=== PATIENT | male | born 1985 | race Caucasian/White ===

== ENCOUNTER 2020-10-08 17:06 | Emergency (ER) | payer SELFPAY ==
[~2020-10-08] VITALS: Ht 182.9 cm; Wt 113.6 kg
[~2020-10-08 17:06] MED LIST: LISI-334 PO
--- NOTE | 2020-10-08 18:09 | PHYS DOC ---
Past Medical History Past Medical History: Anxiety, Hypertension Additional Past Medical Histor: abd pain,panic attacks Past Surgical History: Appendectomy, Tonsillectomy Smoking Status: Never Smoker Alcohol Use: None Drug Use: None General Adult EDM: Chief Complaint: ALCOHOL INTOXICATION HPI: HPI: History obtained from patient. Patient is a 34-year-old male past medical history significant for alcohol abuse, hypertension who presents with chief complaint of concern for alcohol withdrawal. He states that he typically drinks 2/5 of vodka daily. He states he last drank 6 hours ago. He states he would like to get assistance and alcohol cessation. States he has been drinking daily for several months to years. He notes mild diffuse abdominal discomfort. Denies any vomiting. States he has been having visual hallucinations. Denies any shaking. Does note some confusion. States he is unsure of how he arrived in the emergency department. Denies suicidal or homicidal ideations. Denies any drug abuse. States that he has been inpatient in the past for alcohol abuse and this was several months ago. Review of Systems: Review of Systems: Constitutional: Denies fever or chills. [] Eyes: Denies change in visual acuity. [] HENT: Denies nasal congestion or sore throat. [] Respiratory: Denies cough or shortness of breath. [] Cardiovascular: Denies chest pain or edema. [] GI: Denies abdominal pain, nausea, vomiting, bloody stools or diarrhea. [] : Denies dysuria. [] Musculoskeletal: Denies back pain or joint pain. [] Integument: Denies rash. [] Neurologic: Positive for visual hallucinations Endocrine: Denies polyuria or polydipsia. [] Lymphatic: Denies swollen glands. [] Psychiatric: Positive for alcohol abuse Heart Score: Risk Factors: Risk Factors: DM, Current or recent (<one month) smoker, HTN, HLP, family history of CAD, obesity. Risk Scores: Score 0 - 3: 2.5% MACE over next 6 weeks - Discharge Home Score 4 - 6: 20.3% MACE over next 6 weeks - Admit for Clinical Observation Score 7 - 10: 72.7% MACE over next 6 weeks - Early Invasive Strategies Current Medications: Current Medications Medications (Trade) Dose Ordered Sig/Salena Start Time Stop Time Status Last Admin Dose Admin Famotidine (Pepcid) 20 mg 1X ONCE 10/08/20 18:15 10/08/20 18:16 Ondansetron HCl (Zofran Odt) 4 mg 1X ONCE 10/08/20 18:15 10/08/20 18:16 Sodium Chloride 1,000 ml @ 1,000 mls/hr 1X ONCE 10/08/20 18:15 10/08/20 19:14 Allergies: Allergies: Allergies Coded Allergies Type Severity Reaction Last Updated Verified No Known Drug Allergies 05/01/15 No Physical Exam: PE: Constitutional: Well developed, well nourished, no acute distress, non-toxic appearance. [] HENT: Normocephalic, atraumatic, bilateral external ears normal, oropharynx moist, no oral exudates, nose normal. [] Eyes: PERRLA, EOMI, conjunctiva normal, no discharge. [] Neck: Normal range of motion, no tenderness, supple, no stridor. [] Cardiovascular:Heart rate regular rhythm, no murmur [] Lungs & Thorax: Bilateral breath sounds clear to auscultation [] Abdomen: soft, no tenderness, no masses, no pulsatile masses. [] Skin: Warm, dry, no erythema, no rash. [] Back: No tenderness, no CVA tenderness. [] Extremities: No tenderness, no cyanosis, no clubbing, ROM intact, no edema. [] Neurologic: Alert with intact cognitive function. No aphasia, dysarthria, or neglect. Slurred speech noted. GCS 15. Pupils 3 mm briskly reactive b/l. No APD present. Cranial nerves 2-12 grossly intact; no facial asymmetry present, tongue midline, shoulder shrugging strength intact. Strength 5/5 and symmetric throughout. Light touch sensation intact throughout. Cerebellar testing appropriate without evidence of dysdiadochokinesia. DTR's 2+ in all 4 extremities. Negative pronator drift bilaterally. Gait unsteady Psychologic: Affect normal, judgement normal, mood normal. [] Current Patient Data: Labs: Laboratory Tests Test 10/08/20 17:15 10/08/20 20:46 White Blood Count 11.0 x10^3/uL Red Blood Count 5.05 x10^6/uL Hemoglobin 15.3 g/dL Hematocrit 45.9 % Mean Corpuscular Volume 91 fL Mean Corpuscular Hemoglobin 30 pg Mean Corpuscular Hemoglobin Concent 33 g/dL Red Cell Distribution Width 14.8 % Platelet Count 286 x10^3/uL Neutrophils (%) (Auto) 69 % Lymphocytes (%) (Auto) 20 % Monocytes (%) (Auto) 10 % Eosinophils (%) (Auto) 1 % Basophils (%) (Auto) 0 % Neutrophils # (Auto) 7.6 x10^3/uL Lymphocytes # (Auto) 2.1 x10^3/uL Monocytes # (Auto) 1.1 x10^3/uL Eosinophils # (Auto) 0.2 x10^3/uL Basophils # (Auto) 0.0 x10^3/uL Prothrombin Time 13.3 SEC Prothromb Time International Ratio 1.1 Sodium Level 147 mmol/L Potassium Level 3.5 mmol/L Chloride Level 108 mmol/L Carbon Dioxide Level 27 mmol/L Anion Gap 12 Blood Urea Nitrogen 9 mg/dL Creatinine 0.7 mg/dL Estimated GFR (Cockcroft-Gault) 129.1 BUN/Creatinine Ratio 13 Glucose Level 88 mg/dL Calcium Level 8.5 mg/dL Magnesium Level 1.7 mg/dL Total Bilirubin 0.2 mg/dL Aspartate Amino Transf (AST/SGOT) 18 U/L Alanine Aminotransferase (ALT/SGPT) 27 U/L Alkaline Phosphatase 66 U/L Total Protein 7.1 g/dL Albumin 3.7 g/dL Albumin/Globulin Ratio 1.1 Lipase 208 U/L Ethyl Alcohol Level 335 mg/dL Urine Opiates Screen Neg Urine Methadone Screen Neg Urine Barbiturates Neg Urine Phencyclidine Screen Neg Urine Amphetamine/Methamphetamine Neg Urine Benzodiazepines Screen Neg Urine Cocaine Screen Neg Urine Cannabinoids Screen Pos Urine Ethyl Alcohol Pos Current Medications Medications (Trade) Dose Ordered Sig/Salena Route PRN Reason Start Time Stop Time Status Last Admin Dose Admin Sodium Chloride 1,000 ml @ 1,000 mls/hr 1X ONCE IV 10/08/20 18:15 10/08/20 19:14 DC 10/08/20 18:57 Famotidine (Pepcid) 20 mg 1X ONCE PO 10/08/20 18:15 10/08/20 18:16 DC 10/08/20 18:57 Ondansetron HCl (Zofran Odt) 4 mg 1X ONCE PO 10/08/20 18:15 10/08/20 18:16 DC 10/08/20 18:57 Chlordiazepoxide (Librium) 50 mg 1X ONCE PO 10/08/20 20:30 10/08/20 20:31 DC Vital Signs: Laboratory Tests Test 10/08/20 17:15 10/08/20 20:46 White Blood Count 11.0 x10^3/uL Red Blood Count 5.05 x10^6/uL Hemoglobin 15.3 g/dL Hematocrit 45.9 % Mean Corpuscular Volume 91 fL Mean Corpuscular Hemoglobin 30 pg Mean Corpuscular Hemoglobin Concent 33 g/dL Red Cell Distribution Width 14.8 % Platelet Count 286 x10^3/uL Neutrophils (%) (Auto) 69 % Lymphocytes (%) (Auto) 20 % Monocytes (%) (Auto) 10 % Eosinophils (%) (Auto) 1 % Basophils (%) (Auto) 0 % Neutrophils # (Auto) 7.6 x10^3/uL Lymphocytes # (Auto) 2.1 x10^3/uL Monocytes # (Auto) 1.1 x10^3/uL Eosinophils # (Auto) 0.2 x10^3/uL Basophils # (Auto) 0.0 x10^3/uL Prothrombin Time 13.3 SEC Prothromb Time International Ratio 1.1 Sodium Level 147 mmol/L Potassium Level 3.5 mmol/L Chloride Level 108 mmol/L Carbon Dioxide Level 27 mmol/L Anion Gap 12 Blood Urea Nitrogen 9 mg/dL Creatinine 0.7 mg/dL Estimated GFR (Cockcroft-Gault) 129.1 BUN/Creatinine Ratio 13 Glucose Level 88 mg/dL Calcium Level 8.5 mg/dL Magnesium Level 1.7 mg/dL Total Bilirubin 0.2 mg/dL Aspartate Amino Transf (AST/SGOT) 18 U/L Alanine Aminotransferase (ALT/SGPT) 27 U/L Alkaline Phosphatase 66 U/L Total Protein 7.1 g/dL Albumin 3.7 g/dL Albumin/Globulin Ratio 1.1 Lipase 208 U/L Ethyl Alcohol Level 335 mg/dL Urine Opiates Screen Neg Urine Methadone Screen Neg Urine Barbiturates Neg Urine Phencyclidine Screen Neg Urine Amphetamine/Methamphetamine Neg Urine Benzodiazepines Screen Neg Urine Cocaine Screen Neg Urine Cannabinoids Screen Pos Urine Ethyl Alcohol Pos Current Medications Medications (Trade) Dose Ordered Sig/Salena Route PRN Reason Start Time Stop Time Status Last Admin Dose Admin Sodium Chloride 1,000 ml @ 1,000 mls/hr 1X ONCE IV 10/08/20 18:15 10/08/20 19:14 DC 10/08/20 18:57 Famotidine (Pepcid) 20 mg 1X ONCE PO 10/08/20 18:15 10/08/20 18:16 DC 10/08/20 18:57 Ondansetron HCl (Zofran Odt) 4 mg 1X ONCE PO 10/08/20 18:15 10/08/20 18:16 DC 10/08/20 18:57 Chlordiazepoxide (Librium) 50 mg 1X ONCE PO 10/08/20 20:30 10/08/20 20:31 DC EKG: EKG: [] EKG consistent with normal sinus rhythm. Ventricular rate of 66 bpm. [place] normal. Intervals normal. No acute ischemic changes noted. Radiology/Procedures: Radiology/Procedures: [] Course & Med Decision Making: Course & Med Decision Making Pertinent Labs and Imaging studies reviewed. (See chart for details) [] Patient is a 34-year-old male who presents with chief complaint of help with alcohol cessation. He states that he does drink daily. States he last drink 6 hours prior to arrival. vital signs unremarkable. Laboratory analysis has been obtained he does have an alcohol level approximately 300. Remainder of laboratory analysis is unremarkable. Psychiatric assessment team did evaluate the patient bedside. They do feel he is appropriate candidate for inpatient alcohol withdrawal management. Patient is agreeable to this. Denies any suicidal homicidal ideations. A prescription of Librium taper was faxed to [facility]. Patient is alert and oriented x3. Shows no signs of delirium tremens. Was able to ambulate without assistance to the emergency department. Patient was given one-time dose of hydroxyzine for anxiety prior to discharge from the emergency department. Patient will be taking a cab to [facility] Dragon Disclaimer: Dragon Disclaimer: This electronic medical record was generated, in whole or in part, using a voice recognition dictation system. Departure Departure Impression: Primary Impression: Alcohol intoxication Qualified Codes: F10.920 - Alcohol use, unspecified with intoxication, uncomplicated Disposition: 65 DC/TRF TO PSYCH HOSP Condition: STABLE Referrals: JARED LOMBARDI MD (PCP) Scripts Chlordiazepoxide Hcl (CHLORDIAZEPOXIDE HCL) 25 Mg Capsule 25 MG PO PRN PRN for ALCOHOL WITHDRAWAL, #19 CAP Day 1, 50 mg every 4 hours as needed, day 2, 25 mg every 6 hours as needed, day 3, 25 mg twice a day, day, 4 for 25 mg at night Prov: HORACIO MORGAN DO 10/09/20 HORACIO MORGAN DO Oct 08, 2020 18:09
[2020-10-08 18:13] LABS: BASO % 0 % (0-3); EOS # 0.2 x10^3/uL (0.0-0.7); EOS % 1 % (0-3); HEMATOCRIT 45.9 % (39.0-53.0); HEMOGLOBIN 15.3 g/dL (13.0-17.5); LYMPH # 2.1 x10^3/uL (1.0-4.8); LYMPH % 20 % (24-48); MEAN CORPUSCULAR HEMOGLOBIN 30 pg (25-35); MEAN CORPUSCULAR HGB CONC 33 g/dL (31-37); MEAN CORPUSCULAR VOLUME 91 fL (79-100); MONO # 1.1 x10^3/uL (0.0-1.1); MONO % 10 % (0-9); NEUT # 7.6 x10^3/uL (1.8-7.7); NEUT % 69 % (31-73); PLATELET COUNT 286 x10^3/uL (140-400); RED BLOOD COUNT 5.05 x10^6/uL (4.30-5.70); RED CELL DISTRIBUTION WIDTH 14.8 % (11.5-14.5)
[2020-10-08] MEDS ORDERED: ONDANSETRON ODT 4 MG TAB.RAPDIS. PO ONE (18:15)
[2020-10-08] MEDS ORDERED: FAMOTIDINE 20 MG TABLET. PO ONE (18:15)
[2020-10-08] MEDS ORDERED: IV NORMAL SALINE 1000ML BAG 1,000 ML IV ONE (18:15)
[2020-10-08 18:27] LABS: PROTHROMBIN TIME PATIENT 13.3 SEC (11.7-14.0)
[2020-10-08 18:29] LABS: ALBUMIN 3.7 g/dL (3.4-5.0); ALBUMIN/GLOBULIN RATIO 1.1 (1.0-1.7); CALCIUM 8.5 mg/dL (8.5-10.1); CREATININE 0.7 mg/dL (0.7-1.3); GFR 129.1; MAGNESIUM 1.7 mg/dL (1.8-2.4); POTASSIUM 3.5 mmol/L (3.5-5.1); TOTAL BILIRUBIN 0.2 mg/dL (0.2-1.0); TOTAL PROTEIN 7.1 g/dL (6.4-8.2)
[2020-10-08] MEDS ORDERED: CHLO25CA9 PO (20:24)
[2020-10-08] MEDS ORDERED: chlordiazePOXIDE HCL 25 MG CAPSULE PO ONE (20:30)
[2020-10-08 21:03] LABS: BARBITURATES NEG (NEG); BENZODIAZEPINES NEG (NEG); CANNABINOIDS POS (NEG); COCAINE NEG (NEG); METHADONE NEG (NEG); OPIATES NEG (NEG); PHENCYCLIDINE NEG (NEG)
[2020-10-08 21:04] LABS: AMPHETAMINE/METHAMPHETAMINE NEG (NEG)
[2020-10-08 21:58] VITALS: BP 135/58
[2020-10-08] MEDS ORDERED: hydrOXYzine 25 MG TABLET PO ONE (22:45)
[2020-10-09] MEDS ORDERED: CHLO25CA9 PO (05:49)
--- NOTE | 2020-10-10 14:05 | EKG ---
[facility] [address] [place] [address] Test Date: 2020-10-08 Test Time: 18:32:48 Pat Name: OMI QUINTANILLA Department: Room: Gender: M Director Medicare Sales: : 1985 Requested By: HORACIO MORGAN Order Number: [id number] Reading MD: Measurements Intervals [place] Rate: 66 P: 48 WI: 172 QRS: 69 QRSD: 108 T: 59 QT: 370 QTc: 389 Interpretive Statements SINUS RHYTHM OTHERWISE NORMAL ECG RI6.01 No previous ECG available for comparison
== END 2020-10-08 23:27 ==
LOC: ER 17:06
DX: F10.129 Alcohol abuse with intoxication, unspecified (principal); F10.139 Alcohol abuse with withdrawal, unspecified; Y90.8 Blood alcohol level of 240 mg/100 ml or more; I10 Essential (primary) hypertension; Z90.89 Acquired absence of other organs
CPT/HCPCS: 36415; 80053; 80307; 83690; 83735; 85025; 85610; 93005; 96360; 99285; G0480; J7030